=== PATIENT | female | born 1990 | race Two or more races ===

== ENCOUNTER 2022-01-16 19:39 | Inpatient (IN) | payer OTHER ==
[~2022-01-16] VITALS: Ht 172.7 cm; Wt 84.4 kg
[2022-01-16] MEDS ORDERED: PRENATAL TABLE1 EAC1 PO (19:59)
== END 2022-01-18 14:00 | disposition home or self-care (01) | DRG 833 ==
LOC: OBS/DEL 19:39 → LDR 01-17 12:39 → OBS/DEL 01-17 12:39 → LDR 01-18 14:00
PROVIDERS: ADMIT Obstetrics & Gynecology Obstetrics; ATTEND Obstetrics & Gynecology Obstetrics
PROC: BY4DZZZ Ultrasonography of Second Trimester, Multiple Gestation (ICD-10-PCS; 2022-01-16)
PROC: 4A1HXCZ Monitoring of Products of Conception, Cardiac Rate, External Approach (ICD-10-PCS; principal; 2022-01-17)
DX: O60.02 Preterm labor without delivery, second trimester (principal); Z20.822 Contact with and (suspected) exposure to COVID-19; Z3A.26 26 weeks gestation of pregnancy